=== PATIENT | female | born 1950 | race Caucasian/White ===

== ENCOUNTER 2021-02-15 06:53 | Emergency (ER) | payer OTHER, MEDICARE ==
[~2021-02-15] VITALS: Ht 149.9 cm; Wt 49.0 kg
[~2021-02-15 06:53] MED LIST: ACET-4192 PO; ASPI81TA3 PO; CLOP75TA PO; DOCU-299 PO; HYDR-4419 PO; INSU100S45 SC; LANTUS SUBQ; SIMV80TA67 PO; [UNRECOGNIZED DRUG - CODE] PO
[2021-02-15 07:02] VITALS: BP 198/97
--- NOTE | 2021-02-15 07:14 | NUR ---
DR FINK AT BEDSIDE EXAMINING PT
[2021-02-15] MEDS ORDERED: HYDROcodone/APAP 5/325 MG 1 TAB TAB PO ONE (07:20)
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
--- NOTE | 2021-02-15 07:35 | NUR ---
IV ACCESS AND BLOOD DRAW FOR LABS
--- NOTE | 2021-02-15 07:41 | NUR ---
AT BEDSIDE Addendum: 02/15/21 at 0742 by [email or web address] AT BEDSIDE PERFORMING ULTRASOUND
[2021-02-15 07:49] LABS: BASOPHILS # (AUTO) 0.1 K/uL (0.00-0.22); EOSINOPHILS # (AUTO) 0.4 K/uL (0-0.4); EOSINOPHILS % (AUTO) 5.6 % (0.0-4.0); HEMATOCRIT 34.7 % (36-48); HEMOGLOBIN 11.8 g/dL (12.0-16.0); LYMPHOCYTES # (AUTO) 1.6 K/uL (2.5-16.5); LYMPHOCYTES % (AUTO) 23.7 % (20.5-51.1); MEAN CORPUSCULAR HEMOGLOBIN 31 pg (27-31); MEAN CORPUSCULAR HGB CONC 34 g/dL (33-37); MEAN CORPUSCULAR VOLUME 91.3 fL (80-94); MONOCYTES # (AUTO) 0.5 K/uL (0.8-1.0); MONOCYTES % (AUTO) 6.9 % (1.7-9.3); NEUTROPHILS # (AUTO) 4.1 K/uL (1.8-7.7); NEUTROPHILS % (AUTO) 62.8 % (42.2-75.2); PLATELET COUNT (AUTO) 274 K/uL (140-450); RED CELL DISTRIBUTION WIDTH 13.7 % (11.6-13.7); WHITE BLOOD COUNT (AUTO) 6.6 K/uL (4.8-10.8)
--- NOTE | 2021-02-15 08:04 | NUR ---
UA BROUGHT TO LABS, CONTRAST CONSENT SIGNED
[2021-02-15 08:06] LABS: ALBUMIN 3.7 g/dL (3.4-5.0); ANION GAP 13.6 (8-16); ASPARTATE AMINOTRANSFERASE 13 U/L (15-37); CARBON DIOXIDE 28.2 mmol/L (21-32); CHLORIDE 103 mmol/L (98-107); CREATININE 0.9 mg/dL (0.6-1.3); GLUCOSE 182 mg/dL (74-106); POTASSIUM 3.8 mmol/L (3.5-5.1); SODIUM SERUM 141 mmol/L (136-145); TOTAL BILIRUBIN 0.3 mg/dL (0.0-1.0); UREA NITROGEN, BLOOD 24 mg/dL (7-18)
--- NOTE | 2021-02-15 08:54 | NUR ---
PT TAKEN TO CT BY RADIOLOGY
[2021-02-15 09:04] LABS: APPEARANCE,URINE CLEAR (CLEAR); BILIRUBIN,URINE NEGATIVE (NEGATIVE); BLOOD, URINE NEGATIVE (NEGATIVE); COLOR,URINE YELLOW (YELLOW); LEUKOCYTE ESTERASE ,URINE 1+ (NEGATIVE); NITRITE, URINE NEGATIVE (NEGATIVE); PH,URINE 6.5 (5.0-9.0); UGLUCOSE TRACE (NEGATIVE)
--- NOTE | 2021-02-15 09:10 | NUR ---
PT RETURNED FROM RADIOLOGY
[2021-02-15 09:18] LABS: RBC,URINE 0-5 /HPF (0-5); WBC,URINE 0-5 /HPF (0-5)
[2021-02-15] MEDS ORDERED: hydrALAZINE 20 MG/ML VIAL IVP ONE (09:25)
[2021-02-15 09:56] VITALS: BP 174/71
[2021-02-15] MEDS ORDERED: NAPR-54 PO (10:22)
[2021-02-15] MEDS ORDERED: ACET-8386 PO (10:22)
--- NOTE | 2021-02-15 10:50 | NUR ---
Patient discharged with v/s stable. Written and verbal after care instructions given and explained. Patient verbalized understanding. Ambulatory with steady gait. All questions addressed prior to discharge. Advised to follow up with PMD. Patient discharged with v/s stable. Written and verbal after care instructions given and explained. Patient alert, oriented and verbalized understanding of instructions. Ambulatory with steady gait. All questions addressed prior to discharge. ID band removed. Patient advised to follow up with PMD. Rx of NAPROXEN AND NORCO given. Patient educated on indication of medication including possible reaction and side effects. Opportunity to ask questions provided and answered.
== END 2021-02-15 10:50 | disposition home or self-care (01) ==
LOC: MED 06:53
DX: S20.219A Contusion of unspecified front wall of thorax, initial encounter (principal); M79.18 Myalgia, other site; M54.50 Low back pain, unspecified; M54.6 Pain in thoracic spine; E11.9 Type 2 diabetes mellitus without complications; I10 Essential (primary) hypertension; E78.00 Pure hypercholesterolemia, unspecified; Z85.41 Personal history of malignant neoplasm of cervix uteri; Z95.1 Presence of aortocoronary bypass graft; Z98.890 Other specified postprocedural states; Z79.4 Long term (current) use of insulin; Z79.82 Long term (current) use of aspirin; Z79.899 Other long term (current) drug therapy; Z79.01 Long term (current) use of anticoagulants; Z79.1 Long term (current) use of non-steroidal anti-inflammatories (NSAID); Z79.891 Long term (current) use of opiate analgesic; Z91.040 Latex allergy status; V49.9XXA Car occupant (driver) (passenger) injured in unspecified traffic accident, initial encounter; Y93.89 Activity, other specified; Y92.410 Unspecified street and highway as the place of occurrence of the external cause; Y99.8 Other external cause status
CPT/HCPCS: 36415; 74177; 80053; 81001; 85025; 87086; 96374; 99285; J0360; Q9967